=== PATIENT | female | born 1970 | race Asian ===

== ENCOUNTER 2018-08-06 12:48 | Outpatient (CLI) | payer OTHER ==
--- NOTE | 2018-08-06 18:01 | MRI Report ---
Reason: UNSPECIFIED ROTATOR CUFF TEAR OR RUPTURE OF UNSPEC Procedure Date: 08/06/2018 Accession Number: [id number] / [id number] Procedure: MRI - Shoulder LT W/O CPT Code: FULL RESULT: EXAM: LEFT SHOULDER MRI WITHOUT CONTRAST EXAM DATE: 08/06/2018 01:19 PM. CLINICAL HISTORY: Unspecified rotator cuff tear or rupture of unspecified. Left shoulder pain, neck pain and left arm pain. Patient unable to raise left arm above head. COMPARISON: None. TECHNIQUE: Multiplanar, multisequence T1-weighted and fluid-sensitive sequences of the shoulder without contrast. Other: None. FINDINGS: Acromioclavicular Region: The acromion is type II. The acromioclavicular joint is unremarkable. The coracoacromial and coracoclavicular ligaments are intact. No subacromial/subdeltoid bursal fluid. Glenohumeral Region: No subluxation. No effusion or loose bodies. The articular cartilage is unremarkable. The glenohumeral ligaments and joint capsule are unremarkable. Bone Marrow: Subcortical cystic degenerative changes posterior humerus head. Labrum: The labrum is unremarkable on this nonarthrographic study. Musculature/Rotator Cuff: The rotator cuff muscles are negative for atrophy or edema. Infraspinatus tendon negative for tear. Supraspinatus tendon negative for tear. Undersurface of the distal subscapularis tendon near complete partial tear 1.1 cm in height, 3 mm in thickness and 8 mm in the AP dimension. Biceps Tendon: The long head of the biceps tendon and biceps boaz are intact. Other: The subcutaneous tissues are unremarkable. IMPRESSION: Near complete partial undersurface tear distal subscapularis tendon 1.1 cm in height, 3 mm in thickness and 8 mm in length (image 10 series 701 and image 18 series 401). [facility] MUSCULOSKELETAL RADIOLOGY SECTION
== END 2018-08-06 12:49 | disposition home or self-care (01) ==
LOC: DI 12:48
PROVIDERS: ATTEND Family Medicine
DX: M75.102 Unspecified rotator cuff tear or rupture of left shoulder, not specified as traumatic (principal)

== ENCOUNTER 2023-10-13 22:35 | Emergency (ER) | payer OTHER ==
[2023-10-13] MEDS: METOPROLOL TARTRATE 50 MG TABLET PO STA (23:51)
[2023-10-14 00:15] LABS: ALBUMIN 4.1 g/dL (3.2-5.5); ALBUMIN/GLOBULIN RATIO 1.3 (1.0-2.2); BILIRUBIN,TOTAL 0.3 mg/dL (0.2-1.0); CALCIUM 9.3 mg/dL (8.5-10.3); CREATININE 0.7 mg/dL (0.6-1.3); POTASSIUM 3.2 mmol/L (3.5-4.5); TOTAL PROTEIN 7.2 g/dL (6.4-8.9)
--- NOTE | 2023-10-14 00:23 | ED Physician Documentation ---
History of Present Illness - Stated complaint Stated Complaint: LIGHTHEADED/HIGH BP - Chief complaint Chief Complaint: Cardiac - History obtained from History obtained from: Patient - Additonal information Additional information: The patient comes to the emergency department chief complaint of high blood pressure readings today. She has a history of hypertension and is on 12.5 mg of HCTZ daily and is generally fairly stable on this. She states that she has not had any recent dose changes in her medicine. She thinks she may not have slept well last night but she is not sure. She denies being under any further stress than she normally does. She has not felt ill with anything but did know she is little more tired today than usual. No chest pain or shortness of breath. No nausea or vomiting. The patient is making urine. No other complaints at this time.She states she has had multiple blood pressure readings today and they have been generally in the 160s over low 100s. PD PAST MEDICAL HISTORY - Past Medical History Cardiovascular: Hypertension, High cholesterol Respiratory: None Endocrine/Autoimmune: None GI: GERD : None HEENT: None Psych: None Musculoskeletal: None Derm: None - Past Surgical History General: Cholecystectomy /[employer]: Hysterectomy - Present Medications Home Medications: Ambulatory Orders Medication Instructions Recorded Confirmed Atorvastatin [Lipitor] 10 mg PO DAILY 01/19/19 10/13/23 Pantoprazole [Protonix] 40 mg PO DAILY 01/19/19 10/13/23 hydroCHLOROthiazide 12.5 mg PO DAILY 01/19/19 10/13/23 [Hydrochlorothiazide] Metformin HCl [Metformin ER 1,000 mg PO DAILY 10/13/23 10/13/23 Osmotic] Multivitamin 1 each PO DAILY 10/13/23 10/13/23 [place]-3/Dha/Epa/Fish Oil [Fish Oil 1 each PO DAILY 10/13/23 10/13/23 1,000 mg Softgel] - Allergies Allergies/Adverse Reactions: Allergies Allergy/AdvReac Type Severity Reaction Status Date / Time erythromycin base AdvReac Anxiety Verified 01/19/19 13:01 - Social History Does the pt smoke?: No Smoking Status: Never smoker Does the pt drink ETOH?: No Does the pt have substance abuse?: No - Immunizations Immunizations are current?: Yes - POLST Patient has POLST: No PD ED PE NORMAL - Vitals Vital signs reviewed: Yes - General General: No acute distress, Well developed/nourished, Other (Alert and grossly oriented) - HEENT HEENT: Atraumatic, EOMI, Moist mucous membranes - Neck Neck: Supple, no meningeal sign - Cardiac Cardiac: RRR, No murmur - Respiratory Respiratory: No respiratory distress, Clear bilaterally - Abdomen Abdomen: Soft, Non tender, Non distended - Derm Derm: Normal color, Warm and dry, No rash - Extremities Extremities: No deformity, No edema - Neuro Neuro: Other (Alert, grossly intact) - Psych Psych: Normal mood, Normal affect Results - Vitals Vitals: Vital Signs - 24 hr 10/13/23 10/13/23 10/13/23 22:37 23:00 23:30 Temperature 36.8 C Heart Rate 78 72 94 Respiratory 19 15 14 Rate Blood Pressure 181/102 H 167/101 H 153/101 H O2 Saturation 100 97 95 10/14/23 10/14/23 00:00 00:45 Temperature Heart Rate 78 Respiratory 16 Rate Blood Pressure 141/87 H 147/86 H O2 Saturation 97 Oxygen O2 Source Room air - Labs Labs: Laboratory Tests 10/13/23 23:50 Sodium 137 Potassium 3.2 L Chloride 104 Carbon Dioxide 26 Anion Gap 7.0 BUN 11 Creatinine 0.7 Estimated GFR (MDRD) 87 L Glucose 119 H Calcium 9.3 Total Bilirubin 0.3 AST 16 ALT 13 Alkaline Phosphatase 45 Total Protein 7.2 Albumin 4.1 Globulin 3.1 Albumin/Globulin Ratio 1.3 Lipase 32 PD Medical Decision Making - ED course Complexity details: reviewed results, re-evaluated patient, considered differential, d/w patient ED course: The patient overall was well-appearing and her blood pressures in the 150s over low 100s at the time of my exam. She had been up to the 180s over low through the triage. I ordered a dose of metoprolol for her orally, as this was not a hypertensive emergency. I also ordered an ER abdominal panel which was unremarkable. Patient was feeling better and blood pressure had come down to the 140s over 80s upon reevaluation. I discussed with the patient that I do not know what is caused her blood pressure to be high today, but that most likely, this is a temporary thing. We have discussed that if this becomes increasingly frequent, she will need to talk to her primary doctor about adjusting her medications or doses. We have discussed the usual indications for return. Departure - Departure Disposition: 01 Home, Self Care Clinical Impression: Hypertension Qualifiers: Hypertension type: unspecified Qualified Code(s): I10 - Essential (primary) hypertension Condition: Stable Instructions: ED HTN Established Comments: It is unclear what caused your blood pressure to go high today. There are many factors that contribute to the blood pressure and any number of things can cause it to temporarily be high. You did not have any evidence of vital organ damage from this and as such, there is no role for IV blood pressure medicines. We did give you an extra dose of oral medication and this has brought your blood pressure down nicely. Please continue to take your medication as directed for now. If you have increasingly frequent days of high blood pressure, then you may need to talk to your doctor about having your medication or dosages changed. For now though, if this is just a once in a while thing, this is to be expected and likely does not warrant a medication overhaul. Please be sure you are getting plenty of water to drink and getting good sleep at night. Please call to make the next available appointment with your primary doctor to follow-up. Forms: PCP List Discharge Date/Time: 10/14/23 00:45
[2023-10-14 01:08] VITALS: BP 147/86; O2SAT 97
== END 2023-10-14 00:45 | disposition home or self-care (01) ==
LOC: ED 22:35
DX: I10 Essential (primary) hypertension (principal); E78.00 Pure hypercholesterolemia, unspecified; Z79.899 Other long term (current) drug therapy
CPT/HCPCS: 36415; 80053; 83690; 99283; A9270